=== PATIENT | male | born 1985 | race Caucasian/White ===

== ENCOUNTER 2019-02-07 08:19 | Emergency (ER) | payer MEDICAID ==
[~2019-02-07] VITALS: Ht 170.2 cm; Wt 95.3 kg
[2019-02-07 08:29] VITALS: BP 144/93
--- NOTE | 2019-02-07 08:34 | NUR ---
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 DENIES LOC. NO OBVIOUS DEFORMITY NOTED, CMS INTACT. PT IS AMBULATORY WITH A STEADY GAIT. PT PROVIDED WITH GOWN, BED IN LOW POSITION, SIDE RAIL UP X1. AT BEDSIDE.
--- NOTE | 2019-02-07 08:42 | NUR ---
Dr. Pena is evaluating the patient at bedside.
[2019-02-07] MEDS ORDERED: HYDROcodone/APAP 5/325 MG 1 TAB TAB PO ONE (08:50)
--- NOTE | 2019-02-07 08:55 | NUR ---
pt left to xray via wheelchair
--- NOTE | 2019-02-07 09:00 | NUR ---
Sonu obrien in ED - 02/07/19 at 0900 by [email or web address] pt left to ct
--- NOTE | 2019-02-07 09:14 | NUR ---
PT RETURNED FROM XRAY
[2019-02-07 09:44] VITALS: BP 144/93
== END 2019-02-07 09:44 | disposition home or self-care (01) ==
LOC: MED 08:19
DX: S20.229A Contusion of unspecified back wall of thorax, initial encounter (principal); S20.219A Contusion of unspecified front wall of thorax, initial encounter; S70.12XA Contusion of left thigh, initial encounter; S80.02XA Contusion of left knee, initial encounter; S50.02XA Contusion of left elbow, initial encounter; S60.00XA Contusion of unspecified finger without damage to nail, initial encounter; E11.9 Type 2 diabetes mellitus without complications; W18.30XA Fall on same level, unspecified, initial encounter; Y93.89 Activity, other specified; Y92.89 Other specified places as the place of occurrence of the external cause; Y99.8 Other external cause status; Z88.6 Allergy status to analgesic agent
CPT/HCPCS: 71101; 72072; 99283

== ENCOUNTER 2023-04-11 20:57 | Emergency (ER) | payer MEDICAID ==
[~2023-04-11] VITALS: Ht 160 cm; Wt 93.9 kg
[2023-04-11 21:09] VITALS: BP 125/84; PULSE 99; RESP 20; TEMP 97; O2SAT 99
[2023-04-11] MEDS: NACL 0.9% 2,000 ML IV ONE (21:50)
[2023-04-11 21:54] LABS: APPEARANCE,URINE CLEAR (CLEAR); BILIRUBIN,URINE NEGATIVE (NEGATIVE); BLOOD, URINE NEGATIVE (NEGATIVE); COLOR,URINE YELLOW (YELLOW); LEUKOCYTE ESTERASE ,URINE NEGATIVE (NEGATIVE); NITRITE, URINE NEGATIVE (NEGATIVE); PROTEIN,URINE NEGATIVE (NEGATIVE); UGLUCOSE 3+ (NEGATIVE); UROBILINOGEN,URINE 0.2 EU/dL (0.2 - 1)
[2023-04-11 22:12] LABS: BASOPHILS # (AUTO) 0.1 K/uL (0.00-0.22); BASOPHILS % (AUTO) 1.9 % (0.0-2.0); EOSINOPHILS % (AUTO) 0.5 % (0.0-4.0); HEMATOCRIT 46.1 % (36-52); HEMOGLOBIN 16.9 g/dL (12.0-18.0); LYMPHOCYTES # (AUTO) 1.5 K/uL (2.0-11.5); MEAN CORPUSCULAR HEMOGLOBIN 32 pg (27-31); MEAN CORPUSCULAR HGB CONC 37 g/dL (33-37); MEAN CORPUSCULAR VOLUME 87.8 fL (80-94); MONOCYTES # (AUTO) 0.4 K/uL (0.8-1.0); MONOCYTES % (AUTO) 7.1 % (1.7-9.3); NEUTROPHILS # (AUTO) 3.5 K/uL (1.8-7.7); NEUTROPHILS % (AUTO) 63.5 % (42.2-75.2); PLATELET COUNT (AUTO) 238 K/uL (140-450); RED BLOOD CELL COUNT(AUTO) 5.25 MIL/uL (4.20-6.10); WHITE BLOOD COUNT (AUTO) 5.6 K/uL (4.8-10.8)
[2023-04-11 22:25] LABS: ACETONE, SERUM Negative (NEGATIVE)
[2023-04-11 22:27] LABS: ANION GAP 15.1 (8-16); CALCIUM 8.9 mg/dL (8.5-10.1); CARBON DIOXIDE 26.3 mmol/L (21-32); CREATININE 1.3 mg/dL (0.6-1.3); POTASSIUM 4.4 mmol/L (3.5-5.1)
[2023-04-11 22:42] LABS: ALANINE AMINOTRANSFERASE 51 U/L (12-78); ALBUMIN 3.4 g/dL (3.4-5.0); ALKALINE PHOSPHATASE 92 U/L (50-136); ASPARTATE AMINOTRANSFERASE 27 U/L (15-37); BILIRUBIN,DIRECT 0.1 mg/dL (0.0-0.3); LIPASE 39 U/L (16-77); TOTAL BILIRUBIN 0.7 mg/dL (0.0-1.0); TOTAL PROTEIN, SERUM 7.5 g/dL (6.4-8.2)
[2023-04-11] MEDS: NACL 0.9% 1,000 ML IV ONE (22:45)
[2023-04-11] MEDS: INSULIN REGULAR, HUMAN 100 UNIT/ML VIAL IV ONE (23:15)
[2023-04-11] MEDS: HYDROcodone/APAP 5/325 MG 1 TAB TAB PO ONE (23:20)
[2023-04-12] MEDS ORDERED: [UNRECOGNIZED DRUG - CODE] SUBQ (00:52)
[2023-04-12] MEDS ORDERED: DULA0.75 SC (00:52)
[2023-04-12] MEDS ORDERED: METF-352 PO (00:52)
[2023-04-12] MEDS ORDERED: [UNRECOGNIZED DRUG - CODE] MC (00:52)
[2023-04-12] MEDS ORDERED: INSU100I7 SQ (00:52)
[2023-04-12] MEDS ORDERED: GLIM4TAB42 PO (00:52)
[2023-04-12] MEDS ORDERED: EMPA10TA PO (00:52)
[2023-04-12 01:21] VITALS: BP 125/84; PULSE 87; RESP 20; TEMP 97; O2SAT 99
== END 2023-04-12 01:21 | disposition home or self-care (01) ==
LOC: MED 20:57
DX: E11.65 Type 2 diabetes mellitus with hyperglycemia (principal); Z79.1 Long term (current) use of non-steroidal anti-inflammatories (NSAID); Z79.4 Long term (current) use of insulin; Z79.899 Other long term (current) drug therapy
CPT/HCPCS: 36415; 80048; 80076; 81003; 82009; 83690; 85025; 96361; 96374; 99284; J1815; J7030